=== PATIENT | male | born 1945 | race Caucasian/White ===

== ENCOUNTER 2017-09-13 10:55 | Inpatient (IN) ==
[2017-09-13 11:22] LABS: Basophils % 0.4 %; Eosinophils # 0.2 K/mcL (0.0-0.6); Eosinophils % 1.9 %; Hematocrit 34.6 % (37.5-50.1); Hemoglobin 11.6 g/dL (12.9-16.9); Immature Granulocytes % 0.6 % (0-4); Lymphocytes # 2.5 K/mcL (0.6-4.6); Lymphocytes % 32.3 %; Mean Corpuscular HGB Conc 33.5 g/dL (31.6-35.5); Mean Corpuscular Hemoglobin 30.6 pg (28.0-33.3); Mean Corpuscular Volume 91.3 fL (83.0-100.0); Mean Platelet Volume 10.5 fL (9.4-12.4); Monocytes # 0.9 K/mcL (0.0-1.3); Monocytes % 11.1 %; Neutrophils # 4.2 K/mcL (1.6-8.9); Platelet Count 188 K/mcL (140-400); Red Blood Count 3.79 M/mcL (4.19-5.50); Red Cell Distribution Width 12.9 % (11.5-14.5); Segmented Neutrophils % 53.7 %
[2017-09-13] MEDS ORDERED: Aspirin 81 MG TAB.CHEW PO ONE (11:29)
[2017-09-13 11:40] LABS: Calcium 10.1 mg/dL (8.6-10.3); Potassium 6.5 mEq/L (3.5-5.1)
[2017-09-13] MEDS ORDERED: Albuterol 2.5 MG/3 ML NEBULIZER IH ONE (11:43)
[2017-09-13] MEDS ORDERED: Insulin Human Regular 10 UNIT in 0.9 % Sodium Chloride 10 ML IV ONE ×2 (11:43→21:37)
[2017-09-13] MEDS ORDERED: *HR* Dextrose 50 % in Water (Syg) 50 ML SYRINGE IVP ONE ×2 (11:47→21:37)
[2017-09-13] MEDS ORDERED: Sodium Bicarbonate 50 MEQ/50 ML VIAL IVP ONE (11:48)
--- NOTE | 2017-09-13 11:49 | Emergency Department Note ---
Disposition Clinical Impression: Hyperkalemia CKD (chronic kidney disease) Qualifiers: Chronic kidney disease stage: unspecified stage Qualified Code(s): N18.9 - Chronic kidney disease, unspecified Chest pain Qualifiers: Chest pain type: unspecified Qualified Code(s): R07.9 - Chest pain, unspecified Disposition: Admitted As Inpatient Chest Pain HPI - General Chief Complaint: ED Chest Pain Stated Complaint: CP Time Seen by Provider: 09/13/17 11:06 Source: patient, family Mode of arrival: wheelchair Limitations: no limitations Vital Signs Reviewed: Yes Nursing Notes Reviewed: Yes - History of Present Illness HPI Narrative: 72-year-old male with a history of hypertension, diabetes and kidney disease presents for evaluation of chest pain. Patient noted nonexertional chest pain that occurred prior to arrival getting his labs checked. Patient felt chest tightness retrosternal which lasts approximately 15 minutes. Without radiation. Resolved prior to ED presentation. No nausea or vomiting but did no diaphoresis. No abdominal pain. No dyspnea. Severity scale (1-10): 5 - Related Data Home Medications Medication Instructions Recorded Confirmed Citalopram Hydrobromide 10 mg PO DAILY 03/25/16 09/13/17 [Citalopram HBr] Colesevelam HCl [Welchol] 1,250 mg PO DAILY 03/25/16 09/13/17 Insulin DETEMIR [Levemir Flextouch] 37 unit SQ DAILY 03/25/16 09/13/17 Metformin HCl [Glucophage] 1,000 mg PO BID 03/25/16 09/13/17 Metoprolol [Lopressor] 50 mg PO BID 03/25/16 09/13/17 Simvastatin [Zocor] 40 mg PO HS 03/25/16 09/13/17 amLODIPine [Norvasc] 5 mg PO DAILY 03/25/16 09/13/17 Iron 18 mg PO DAILY 09/13/17 09/13/17 Allergies Allergy/AdvReac Type Severity Reaction Status Date / Time Poison Gisselle Extract Allergy Rash Verified 03/25/16 10:09 All systems ED: reviewed and negative except as stated. Constitutional: Reports: as per HPI. Denies: fever Eyes: Reports: as per HPI ENT ED: Reports: as per HPI Cardiovascular: Reports: as per HPI, chest pain Respiratory: Reports: as per HPI. Denies: cough, dyspnea Gastrointestinal: Reports: as per HPI. Denies: abdominal pain, nausea, vomiting Genitourinary: Reports: as per HPI Musculoskeletal: Reports: as per HPI Integumentary: Reports: as per HPI Neurological: Reports: as per HPI Psychiatric: Reports: as per HPI Chest Pain PMH - Past Medical History Medical history: Reports: diabetes, hyperlipidemia, hypertension, renal disease Psychiatric history: Reports: anxiety - Social History Smoking Status: Never smoker Alcohol use: Reports: none Drug use: Reports: none Physical Exam - General Limitations: no limitations General appearance: alert, in no apparent distress - Head Head exam: atraumatic, normocephalic, normal inspection - Eye Eye exam: Present: normal appearance, PERRL, EOMI - ENT ENT exam: normal exam, mucous membranes moist - Neck Neck exam: Present: normal inspection - Chest Chest inspection: Present: normal inspection, symmetric chest wall rise. Absent : tenderness - Respiratory Respiratory exam: Present: normal lung sounds bilaterally. Absent: respiratory distress - Cardiovascular Cardiovascular exam: Present: normal rhythm, bradycardia - Abdominal Exam Abdominal exam: Present: soft, Non-Tender - Extremities Exam Extremities exam: Present: normal inspection. Absent: pedal edema - Expanded Lower Extremity Exam Neurovascular/Tendon exam: Present: normal capillary refill - Neurological Exam Neurological exam: Present: alert, oriented X3 - Skin Skin exam: Present: warm, dry, intact, normal color Course Course Narrative: She was seen and examined. Patient states his pain has resolved. She will get a cardiac evaluation with EKG, troponin and basic labs. Vital Signs Temperature 97.7 F 09/13/17 10:57 Pulse Rate 49 09/13/17 10:57 Respiratory Rate 20 09/13/17 10:57 Blood Pressure 151/77 09/13/17 10:57 O2 Sat by Pulse Oximetry 99 09/13/17 10:57 Temperature 97.7 F 09/13/17 10:57 Pulse Rate 49 09/13/17 10:57 Respiratory Rate 18 09/13/17 13:20 Blood Pressure 123/57 09/13/17 13:20 O2 Sat by Pulse Oximetry 97 09/13/17 11:43 Oxygen Delivery Oxygen Delivery Room Air Chest Pain - MDM Narrative Medical decision making narrative: 72-year-old male patients for evaluation of chest pain. During the patient's cardiac evaluation he was noted to be hyperkalemic with a potassium of 6.5. Patient had nonischemic EKG changes. Patient's EKG shows sinus bradycardia. Patient was given albuterol as well as bicarbonate and insulin. Patient's chest pain was resolved prior to ED presentation. Patient's EKG showed no signs or symptoms consistent with hyperkalemia. Patient was not given any calcium. Patient will be admitted to the hospital service for further evaluation monitoring. - Lab Data Lab results reviewed: Yes I reviewed the patient's lab results. Result diagrams: 09/13/17 11:00 09/13/17 11:48 Lab Results 09/13/17 09/13/17 09/13/17 Range/Units 10:57 11:00 11:00 WBC 7.9 (4.3-11.1) K/mcL RBC 3.79 L (4.19-5.50) M/mcL Hgb 11.6 L (12.9-16.9) g/dL Hct 34.6 L (37.5-50.1) % MCV 91.3 (83.0-100.0) fL MCH 30.6 (28.0-33.3) pg MCHC 33.5 (31.6-35.5) g/dL RDW 12.9 (11.5-14.5) % Plt Count 188 (140-400) K/mcL MPV 10.5 (9.4-12.4) fL Immature Gran % 0.6 (0-4) % Seg Neutrophils % 53.7 % Lymphocytes % 32.3 % Monocytes % 11.1 % Eosinophils % 1.9 % Basophils % 0.4 % Neutrophils # 4.2 (1.6-8.9) K/mcL Lymphocytes # 2.5 (0.6-4.6) K/mcL Monocytes # 0.9 (0.0-1.3) K/mcL Eosinophils # 0.2 (0.0-0.6) K/mcL Basophils # 0.0 (0.0-0.2) K/mcL Sodium 137 (136-145) mEq/L Potassium 6.5 H* (3.5-5.1) mEq/L Chloride 109 H (98-107) mEq/L Carbon Dioxide 22 L (23-29) mEq/L BUN 31 H (8-23) mg/dL Creatinine 2.16 H (0.70-1.30) mg/dL Est GFR ( Amer) 37 L (> 60) Est GFR (Non-Af Amer) 30 L (> 60) BUN/Creatinine Ratio 14 (6-26) Glucose 178 H (70-105) mg/dL POC Glucose 191 H (58-89) Calculated Osmolality 295 (280-300) Calcium 10.1 (8.6-10.3) mg/dL Troponin I (< 0.04) ng/mL 09/13/17 09/13/17 Range/Units 11:00 11:48 WBC (4.3-11.1) K/mcL RBC (4.19-5.50) M/mcL Hgb (12.9-16.9) g/dL Hct (37.5-50.1) % MCV (83.0-100.0) fL MCH (28.0-33.3) pg MCHC (31.6-35.5) g/dL RDW (11.5-14.5) % Plt Count (140-400) K/mcL MPV (9.4-12.4) fL Immature Gran % (0-4) % Seg Neutrophils % % Lymphocytes % % Monocytes % % Eosinophils % % Basophils % % Neutrophils # (1.6-8.9) K/mcL Lymphocytes # (0.6-4.6) K/mcL Monocytes # (0.0-1.3) K/mcL Eosinophils # (0.0-0.6) K/mcL Basophils # (0.0-0.2) K/mcL Sodium (136-145) mEq/L Potassium 6.5 H* (3.5-5.1) mEq/L Chloride (98-107) mEq/L Carbon Dioxide (23-29) mEq/L BUN (8-23) mg/dL Creatinine (0.70-1.30) mg/dL Est GFR ( Amer) (> 60) Est GFR (Non-Af Amer) (> 60) BUN/Creatinine Ratio (6-26) Glucose (70-105) mg/dL POC Glucose (58-89) Calculated Osmolality (280-300) Calcium (8.6-10.3) mg/dL Troponin I < 0.03 (< 0.04) ng/mL - Radiology Data Radiology results reviewed: Yes I reviewed the patient's radiology results. Chest X-Ray 09/13/17 11:29 IMPRESSION: 1. No active pulmonary disease. D/ / Carlos Daley MD / Carlos Daley MD Interpreting Provider: Carlos Daley MD - EKG Data EKG attestation: Yes I reviewed and interpreted this EKG. EKG shows normal: sinus rhythm Rate: bradycardia Rhythm: NSR [place]/QRS: normal Q waves: aVR T wave inversions noted in: aVR Interpretation: no acute changes S.Job - Colin Situation: Demographics Background: Presenting Complaint Assessment: Vital Signs, Course and respsone to treatment, Patient/Family Expectation Recommendation: Barrier(s) to disposition, Recommendation based on pending studies, treatments, or consults Colin Report Given to: Dr. Matthew Shaw Repor Time: 13:00 Attestation Statement - Attestation Attestation: I examined this patient and my medical decision-making was reviewed with the Resident Physician. I agree with the documented findings, disposition and treatment plan as described except to the extent set forth below. Hyper K+ with mild CLIFTON, confirmed w repeat K+, no hemolysis. Hyper K+ treated in ED, no EKG changes so Calcium not given.
[2017-09-13] MEDS ORDERED: Calcium Gluconate 1,000 MG in D5% in Water 100 ML IVPB ONE (14:09)
[2017-09-13] MEDS ORDERED: Naloxone 0.4 MG/ML INJ IVP PRN (14:12)
[2017-09-13] MEDS ORDERED: Dextrose Gel 15 GM/37.5 ML TUBE PO PRN ×2 (14:16)
[2017-09-13] MEDS ORDERED: D5% in Water 1,000 ML IVC PRN (14:16)
[2017-09-13] MEDS ORDERED: *HR* Dextrose 50 % in Water (Syg) 50 ML SYRINGE IVP PRN (14:16)
--- NOTE | 2017-09-13 14:20 | Internal Med History&Physical ---
<Chucho Loving - Last Filed: 09/13/17 14:26> Date of Encounter: 09/13/17 Time of Encounter: 14:18 Assessment and Plan (1) Acute kidney injury superimposed on chronic kidney disease Current visit: Yes Status: Acute Acute on chronic renal failure in the setting of CKD III. Etiology unclear at this time. He is sinus bradycardia but this does not appear to be pre-renal -Consult nephrology- -IVF 0.9% NS at 125ml/hr -check urine sodium and creatinine, -hold metformin as potential cause of CLIFTON -avoid nephrotoxins -Recheck serum Cr in the am (2) Hyperkalemia Current visit: Yes Status: Acute Hyperkalemia in the setting of CLIFTON. Dextrose, insulin and bicarb given in the ED. 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 He reports substernal CP that was non-exertional. He did however have diaphoresis, but no SOB. He reports that he experiences this type of chest pain frequently and that it occurs mostly with eating and subsided after approximately 20 minutes. Denies any h/o CAD or IL. Risk factors include HTN, DM, and HLD -trend troponins -PALOMA to assess for wall motion abnormalities -ASA 81 mg now - cardiac enzymes x 2 q 8 hr - EKG no changes or ischemia noted - Hold metoprolol for now d/t bradycardia - O2 by NC to keep SpO2 greater than 92% - CBCD, BMP in AM - Fasting lipids - Heparin 5000 U SQ BID -Hold off on cardiac consult for now Qualifiers: Chest pain type: unspecified Qualified Code(s): R07.9 - Chest pain, unspecified (4) Diabetes mellitus type 2 in nonobese Current visit: Yes Status: Chronic LSSIC, AAC/HS check with renal/diabetic diet (5) Hypertension Current visit: Yes Status: Chronic stable, hold BB, resume amlodipine Qualifiers: Hypertension type: essential hypertension Qualified Code(s): I10 - Essential (primary) hypertension (6) CKD (chronic kidney disease) Current visit: Yes Status: Acute see plan above Qualifiers: Chronic kidney disease stage: stage 3 (moderate) Qualified Code(s): N18.3 - Chronic kidney disease, stage 3 (moderate) (7) DVT prophylaxis Current visit: Yes Status: Acute Hepain 5000 units SC BID Internal Medicine - H&P: HPI Chief complaint: HYPERKALEMIA, WORSENING RENAL FUNCTION Admitted From: Home Plans for Post Hospital Care: Home History of present illness: Mr. Lee is a 72 year old male with past medical history of CKD stage III, HTN, DM, and HLD. Patient presents today due to hyperkalemia and nonexertional retrosternal chest pain. 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 The patient said during the event he was diaphoretic but denied any shortness of breath. He reports chest pain lasted approximately 15 minutes No prior history of IL. He denies any nausea, vomiting, diarrhea, abdominal pain, fevers , chills, unilateral extremity swelling or pain. EKG in the emergency department reveals sinus bradycardia without any ischemic changes. His lab work that up revealed hyperkalemia with potassium of 6.5 as well as worsening renal function with BUN 31 and creatinine of 2.16. Past Med Surg Social Fam HX - Past Medical History Medical history: diabetes, hyperlipidemia, hypertension, renal disease Psychiatric history: anxiety - Social History Smoking Status: Never smoker Smokeless Tobacco Status: No Alcohol use: none Drug use: none - Family History Father Living Status: Hx Family Cardiac Disorders: Yes Brother Living Status: Still Living Hx Family Cancer: Yes (Metastatic) Hx Family Endocrine Disorder: Yes (DM) Internal Medicine - H&P: Meds Citalopram Hydrobromide [Citalopram HBr] 10 mg PO DAILY 03/25/16 [History] Colesevelam HCl [Welchol] 1,250 mg PO DAILY 03/25/16 [History] Insulin DETEMIR [Levemir Flextouch] 37 unit SQ DAILY 03/25/16 [History] Metformin HCl [Glucophage] 1,000 mg PO BID 03/25/16 [History] Metoprolol [Lopressor] 50 mg PO BID 03/25/16 [History] Simvastatin [Zocor] 40 mg PO HS 03/25/16 [History] amLODIPine [Norvasc] 5 mg PO DAILY 03/25/16 [History] Iron 18 mg PO DAILY 09/13/17 [History] 3 Allergy/AdvReac Type Severity Reaction Status Date / Time Poison Gisselle Extract Allergy Rash Verified 03/25/16 10:09 All Systems PM: A 10-system review of systems was performed and is negative for pertinent findings except as documented above in the HPI. - Constitutional Constitutional: no chills, no fever(s), no night sweats - Cardiovascular Cardiovascular ROS IM: as per HPI - Respiratory Respiratory: no cough, no dyspnea, no wheezing, no excessive phlegm production - Gastrointestinal Gastrointestinal: as per HPI, no abdominal pain, no diarrhea, no hematemesis, no hematochezia, no melena, no nausea, no vomiting - Genitourinary Genitourinary ROS male: no dysuria, no flank pain - Musculoskeletal Musculoskeletal ROS IM: no numbness, no tingling - Integumentary Integumentary IM: no rash, no unusual bruising - Neurological Neurological ROS: no confusion, no convulsions, no focal weakness, no numbness, no tingling, no tremor(s) - Hematologic/Lymphatic Hematologic/Lymphatic: no easy bruising - Constitutional Vitals: Temp Pulse Resp BP Pulse Ox 97.7 F 49 18 123/57 97 09/13/17 10:57 09/13/17 10:57 09/13/17 13:20 09/13/17 13:20 09/13/17 11:43 General appearance: Present: cooperative, A&O X 3, no acute distress, answers questions appropriately - Head Head exam: Present: atraumatic, normocephalic - Eye Eye exam: Present: PERRL, conjuntiva pink, sclera anicteric Pupils: Present: PERRL - ENT ENT exam: Present: mucous membranes dry - Neck Neck exam general surgery: Present: supple, trachea midline. Absent: lymphadenopathy - Respiratory Respiratory exam: Present: CTAB. Absent: accessory muscle use, rales, rhonchi, wheezes - Cardiovascular Cardiovascular exam: Present: RRR, +S1, +S2. Absent: diastolic murmur, gallop, rubs, systolic murmur - GI/Abdominal GI/Abdominal exam: Present: normal bowel sounds, soft, no peritoneal signs. Absent: distended, tenderness - Extremities Exam Extremities exam: Present: warm, radial pulses palpable and symmetrical. Absent : calf tenderness, cyanotic, pedal edema - Neurological Exam Neurological exam: Present: alert, oriented X3. Absent: facial droop, speech deficit - Skin Skin exam: Present: dry, intact Internal Med - H&P Results - Labs CBC & Chem 7: 09/13/17 11:00 09/13/17 11:48 - EKG Data -: EKG Interpreted by Myself EKG shows normal: sinus rhythm Rate: bradycardia - EKG Data Prior EKG available for review: yes When compared to previous EKG: there are significant changes Interpretation IM: normal EKG EKG comments: 09/13/17 14:21 NEW BRADYCARDIA, NO ISCHEMIC CHANGES NOTED - Impressions Impressions Chest X-Ray 09/13/17 11:29 IMPRESSION: 1. No active pulmonary disease. D/ / Carlos Daley MD / Carlos Daley MD Interpreting Provider: Carlos Daley MD <Joel Irwin H - Last Filed: 09/13/17 15:09> Date of Encounter: 09/13/17 Internal Medicine - H&P: HPI History of present illness: Mr. Lee is a 72 year old male All Systems PM: A 10-system review of systems was performed and is negative for pertinent findings except as documented above in the HPI. - Constitutional Vitals: Temp Pulse Resp BP Pulse Ox 98.2 F 63 15 124/53 95 09/13/17 14:42 09/13/17 14:42 09/13/17 14:42 09/13/17 14:42 09/13/17 14:42 Internal Med - H&P Results - Labs CBC & Chem 7: 09/13/17 11:00 09/13/17 11:48 - Attending Attestation 1. Acute on chronic renal failure in the setting of chronic kidney disease stage III, unclear etiology Start IV fluids, check urine sodium and creatinine,: Nephrology consult, stop metformin 2. Bradycardia, asymptomatic likely secondary to beta cade Hold metoprolol, continue telemetry 3. Chest pain, check an echocardiogram to assess wall motion abnormalities Monitor troponins, start aspirin Lipid panel in the morning 4. Hyperkalemia, dextrose 50, insulin and bicarbonate were given in the emergency room We will give 1 amp of calcium gluconate and Kayexalate, monitor sodium 5. Diabetes type 2 insulin-dependent, continue insulin sliding scale 6. Hypertension, continue amlodipine Omeprazole for GI prophylaxis and subcutaneous heparin for deep prophylaxis. The patient will be admitted as inpatient, Lew to stay more than 2 midnights. DNR CC arrest DNI, time spent on this admission 40 minutes I have personally performed a face to face evaluation on this patient. I have reviewed and agree with the care plan. History and Exam by me shows:
--- NOTE | 2017-09-13 14:23 | Event Note ---
Date of Encounter: 09/13/17 Time of Encounter: 14:20 1. Acute chronic renal failure in the setting of chronic kidney disease stage III, unclear etiology Start IV fluids, check urine sodium and creatinine,: Nephrology consult, stop metformin 2. Bradycardia, asymptomatic likely secondary to beta cade Hold metoprolol, continue telemetry 3. Chest pain, check an echocardiogram to assess wall motion abnormalities Monitor troponins, start aspirin Lipid panel in the morning 4. Hyperkalemia, dextrose 50, insulin and bicarbonate were given in the emergency room We will give 1 amp of calcium gluconate and Kayexalate, monitor sodium 5. Diabetes type 2 insulin-dependent, continue insulin sliding scale 6. Hypertension, continue amlodipine Omeprazole for GI prophylaxis and subcutaneous heparin for deep prophylaxis. The patient will be admitted as inpatient, Lew to stay more than 2 midnights. DNR CC arrest DNI, time spent on this admission 40 minutes H&P will be completed by CAREY Loving
[2017-09-13] MEDS: *HR* Heparin 5,000 UNIT/ML VIAL SQ SCH (16:16)
[2017-09-13] MEDS: 0.9 % Sodium Chloride 1,000 ML IVC SCH (16:16)
[2017-09-13] MEDS: Insulin LISPRO 300 UNITS/3 ML VIAL SQ SCH ×2 (16:45→23:12)
[2017-09-13] MEDS ORDERED: Nitroglycerin 0.4 MG TAB.SUBL SL PRN (18:35)
[2017-09-13] MEDS ORDERED: *HR* Morphine 2 MG/ML SYRINGE IVP PRN (18:41)
--- NOTE | 2017-09-13 19:05 | Nephrology Consult Note ---
Date of Encounter: 09/13/17 Time of Encounter: 18:00 Assessment and Plan (1) Acute kidney injury superimposed on chronic kidney disease Current Visit: Yes Status: Acute Non-oliguric CLIFTON on CKD stage IIIb. Suspect prerenal CLIFTON. Continue volume expansion. No urgent need for HD but if his hyperkalemia becomes medical refractory, then dialysis may be needed. See below. Continue to follow a renal protective / supportive strategy. Will follow with you. Thank you for consulting the [facility] service. (2) CKD (chronic kidney disease) Current Visit: Yes Status: Chronic CKD stage IIIb and nearing stage IV. Most likely secondary to DM. He is followed by my colleague Dr. Crisostomo. Hold metformin for now, and depending upon how good his renal function improves during this hospitalization, he may not be able to resume metformin at discharge. The guidance from the FDA indicates that metformin should only be cautiously given with GFRs of 30-45, but if <30, then metformin is contraindicated. Qualifiers: Chronic kidney disease stage: stage 3 (moderate) Qualified Code(s): N18.3 - Chronic kidney disease, stage 3 (moderate) (3) Hyperkalemia Current Visit: Yes Status: Acute Agree with kayexalate and the other medical temporizing measures. Continue to volume expand with NS IVF as this will also help lower serum K+ His bradycardia is already starting to improve on my exam this evening. I suspect the CLIFTON and reduced renal clearance contributed to the hyperkalemia. He should have a renal diet (i.e., low potassium diet). I counseled him for >50% of the approx 30 min encounter. (4) Hypertension Current Visit: Yes Status: Chronic He's not taking an VERO or ARB d/t his advanced CKD. Would cont to avoid any VERO or ARB for the time being. Qualifiers: Hypertension type: essential hypertension Qualified Code(s): I10 - Essential (primary) hypertension (5) Pain of left calf Current Visit: Yes Status: Acute Subacute, with asymmetric Left Calf swelling and pain for a few weeks. I recommend DVT rule out and I've ordered a LE doppler. History of Present Illness - Reason for Consult Consult date: 09/13/17 Acute Kidney Injury, Chronic Kidney Disease, hyperkalemia Requesting physician: Joel Irwin - Chief Complaint Hyperkalemia, CLIFTON on CKD - History of Present Illness Jermaine Lee is a very pleasant 72 y/o WM with a pmh of CKD, T2DM, HTN and et al who presented with substernal chest pains, bradycardia and hyperkalemia. He has already received kayexalate, and upon my exam and interview this evening with him, he was already having bowel movements and less severe bradycardia. He reported development of substernal CP that both worsens with palpation and occ at rest. Does not worsen with exertion. He described it as pulling like pain. He denied recent hvy lifting or falls or other injuries. He also denied N/V/D or F/C or URI / cough symptoms. His primary archeologist is Dr. Crisostomo. The pt denied use of OTC NSAIDs. He also said that his left lower extremity started swelling a few weeks ago without recent injury. The other leg has not been swelling. He said that he's not had any imaging to rule out a DVT. There is a burning pain associated with the left calf he said as well. Past Med Surg Social Fam HX - Past Medical History Medical history: diabetes, hyperlipidemia, hypertension, renal disease Psychiatric history: anxiety - Past Surgical History Surgical History: cholecystectomy - Social History Smoking Status: Never smoker Smokeless Tobacco Status: No Alcohol use: none Drug use: none - Family History Father Name: Too Lee Living Status: Age at : 77 Hx Family Cardiac Disorders: Yes Brother Living Status: Still Living Hx Family Cancer: Yes (Metastatic) Hx Family Endocrine Disorder: Yes (DM) Medications and Allergies Citalopram Hydrobromide [Citalopram HBr] 10 mg PO DAILY 03/25/16 [History] Colesevelam HCl [Welchol] 1,250 mg PO DAILY 03/25/16 [History] Insulin DETEMIR [Levemir Flextouch] 37 unit SQ DAILY 03/25/16 [History] Metformin HCl [Glucophage] 1,000 mg PO BID 03/25/16 [History] Metoprolol [Lopressor] 50 mg PO BID 03/25/16 [History] Simvastatin [Zocor] 40 mg PO HS 03/25/16 [History] amLODIPine [Norvasc] 5 mg PO DAILY 03/25/16 [History] Iron 18 mg PO DAILY 01/24/18 [History] 3 Allergy/AdvReac Type Severity Reaction Status Date / Time Poison Gisselle Extract Allergy Rash Verified 03/25/16 10:09 Review of Systems All Systems: reviewed and no additional remarkable complaints except as stated Exam - Vital Signs Vital signs: Initial Vital Signs Temp Pulse Resp BP Pulse Ox 97.7 F 49 20 151/77 99 09/13/17 10:57 09/13/17 10:57 09/13/17 10:57 09/13/17 10:57 09/13/17 10:57 Vital Signs - Last 8 Hours Temp Pulse Resp BP Pulse Ox 09/13/17 18:24 97.5 F L 65 16 162/73 96 09/13/17 14:42 98.2 F 63 15 124/53 95 Intake and Output 09/13/17 09/13/17 09/13/17 07:59 15:59 23:59 Other: Weight 61.348 kg Blood Glucose* 146 132 Patient Weight 09/13/17 23:59 Weight 61.348 kg - General Appearance General appearance: well-developed, well-nourished, appears started age EENT: ATNC, PERRL, mucous membranes moist Additional Comments: Poor dentition. Neck: supple Respiratory: clear Cardiology: no edema (in the RLE, but the LLE has about 1+ pretibial pitting edema. ), regular rate, regular rhythm, normal S1, normal S2 Additional Comments: Chest pain worsened upon light sternal palpation Gastrointestinal: normoactive bowel sounds, no tenderness, no guarding Integumentary: no rash, warm and dry Neurologic: no focal deficit, no asterixis, alert and oriented x3 Musculoskeletal: no deformities, no erythema, no cyanosis Psychiatric: mood/affect appropriate, cooperative Results - Lab Results 09/13/17 11:00 09/13/17 11:48 Most recent lab results Calcium 10.1 mg/dL (8.6-10.3) 09/13/17 11:00 I reviewed the labs, med lists, progress notes, vitals, and imaging. Consult Discharge Plan - Plan Referrals: Erasto Varner MD [Primary Care Provider] -
[2017-09-13 19:13] LABS: Albumin 4.1 g/dL (3.5-5.7); Albumin/Globulin Ratio 1.3 (1.1-2.2); Bilirubin,Direct 0.1 mg/dL (0.0-0.2); Bilirubin,Indirect 0.3 mg/dL (0.0-1.2); Bilirubin,Total 0.4 mg/dL (0.3-1.0); Globulin 3.1 g/dL (2.4-3.5); Total Protein 7.2 g/dL (6.4-8.9)
[2017-09-13 22:33] LABS: Calcium 9.7 mg/dL (8.6-10.3); Potassium 5.1 mEq/L (3.5-5.1)
[2017-09-13 22:40] LABS: Sodium, Urine 48.5 mEq/L
[2017-09-14] MEDS: 0.9 % Sodium Chloride 1,000 ML IVC SCH (03:00)
[2017-09-14 05:19] LABS: Basophils % 0.2 %; Eosinophils # 0.1 K/mcL (0.0-0.6); Eosinophils % 2.2 %; Immature Granulocytes % 0.4 % (0-4); Lymphocytes # 1.7 K/mcL (0.6-4.6); Lymphocytes % 34.3 %; Mean Corpuscular HGB Conc 33.3 g/dL (31.6-35.5); Mean Corpuscular Hemoglobin 30.4 pg (28.0-33.3); Mean Corpuscular Volume 91.2 fL (83.0-100.0); Mean Platelet Volume 10.7 fL (9.4-12.4); Monocytes # 0.7 K/mcL (0.0-1.3); Monocytes % 13.7 %; Neutrophils # 2.5 K/mcL (1.6-8.9); Platelet Count 147 K/mcL (140-400); Red Blood Count 3.29 M/mcL (4.19-5.50); Red Cell Distribution Width 13.1 % (11.5-14.5); Segmented Neutrophils % 49.2 %
[2017-09-14] MEDS: *HR* Heparin 5,000 UNIT/ML VIAL SQ SCH ×2 (05:46→17:32)
[2017-09-14 05:59] LABS: Albumin 3.8 g/dL (3.5-5.7); Albumin/Globulin Ratio 1.5 (1.1-2.2); Bilirubin,Total 0.5 mg/dL (0.3-1.0); Calcium 8.7 mg/dL (8.6-10.3); Chol/HDL Ratio 4.1 (0-4.9); Globulin 2.5 g/dL (2.4-3.5); Potassium 4.7 mEq/L (3.5-5.1); Total Protein 6.3 g/dL (6.4-8.9)
[2017-09-14] MEDS: Insulin LISPRO 300 UNITS/3 ML VIAL SQ SCH ×4 (08:24→22:31)
[2017-09-14] MEDS ORDERED: amLODIPine 5 MG TABLET PO SCH (09:00)
--- NOTE | 2017-09-14 09:00 | Electrocardiograph Report ---
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
--- NOTE | 2017-09-14 09:11 | Nephrology Progress Note ---
Date of Encounter: 09/14/17 Time of Encounter: 09:09 - Assessment and Plan (1) Acute kidney injury superimposed on chronic kidney disease Current Visit: Yes Status: Acute Non-oliguric CLIFTON on CKD stage IIIb. FeNa 0.04% indicating pre-renal cause, likely hypovolemia Continue volume expansion. No urgent need for HD but if his hyperkalemia becomes medical refractory, then dialysis may be needed. Continue to follow a renal protective / supportive strategy. Avoid nephrotoxins/ IV contrast Continue to monitor (2) CKD (chronic kidney disease) Current Visit: Yes Status: Chronic CKD stage IIIb and nearing stage IV. Most likely secondary to DM. Jack Winder is Dr. Crisostomo. Hold metformin for now, and depending upon how good his renal function improves during this hospitalization, he may not be able to resume Metformin at discharge. The guidance from the FDA indicates that metformin should only be cautiously given with GFRs of 30-45, but if <30, then metformin is contraindicated. Qualifiers: Chronic kidney disease stage: stage 3 (moderate) Qualified Code(s): N18.3 - Chronic kidney disease, stage 3 (moderate) (3) Hyperkalemia Current Visit: Yes Status: Acute Resolved Stop Kayexalate. Continue to volume expand with NS IVF I suspect the CLIFTON and reduced renal clearance contributed to the hyperkalemia. He should have a renal diet (i.e., low potassium diet). (4) Hypertension Current Visit: Yes Status: Chronic Patient is not taking an VERO or ARB d/t his advanced CKD. Would continue to avoid any VERO or ARB for the time being. Increase dose home Amlodipine to 10mg PO daily Switch from Zocor to Lipitor due to drug interaction with Amlodipine Qualifiers: Hypertension type: essential hypertension Qualified Code(s): I10 - Essential (primary) hypertension (5) HLD (hyperlipidemia) Current Visit: No Status: Chronic Switch from Zocor to Lipitor due to drug interaction with Amlodipine Qualifiers: Hyperlipidemia type: unspecified Qualified Code(s): E78.5 - Hyperlipidemia , unspecified (6) Pain of left calf Current Visit: Yes Status: Acute Subacute, with asymmetric left calf swelling and pain for a few weeks LLE doppler preliminary report is negative for DVT Subjective Principal diagnosis: CLIFTON on CKD Interval history: Patient seen and examined. He reports intermittent sub-sternal CP this AM reproducible on chest palpation. He denies any other complaints at this time. Objective - Vital Signs Vital signs: Vital Signs Temp Pulse Resp BP Pulse Ox 09/14/17 06:59 98.2 F 70 18 150/75 95 09/14/17 04:05 97.9 F 63 16 151/72 97 09/13/17 23:06 98.0 F 63 16 132/67 96 09/13/17 18:24 97.5 F L 65 16 162/73 96 09/13/17 14:42 98.2 F 63 15 124/53 95 Intake and Output 09/13/17 09/14/17 09/14/17 23:59 07:59 15:59 Intake Total 1000 / 1000 Output Total 700 / 700 Balance 300 / 300 Intake: IV Fluids 1000 / 1000 0.9 % Sodium Chloride 1,000 ML 1000 / 1000 @ 125 mls/hr IVC .Q8H [facility] Rx#: [id number] Output: Urine 700 / 700 Other: Blood Glucose* 179 148 - General Appearance General appearance: Present: well-developed, well-nourished, appears started age EENT: Present: ATNC, PERRL, mucous membranes moist Neck: Present: no JVD, supple Respiratory: Present: clear Cardiology: Present: no murmurs, regular rate, regular rhythm, normal S1, normal S2 Additional Comments: no edema in the RLE, but the LLE has about 1+ pretibial pitting edema, sub- sternal chest pain reproducible with chest wall palpation Gastrointestinal: Present: normoactive bowel sounds, no tenderness, no guarding Integumentary: Present: no rash, warm and dry Neurologic: Present: no focal deficit, no asterixis, alert and oriented x3 Musculoskeletal: Present: no deformities, no erythema, no cyanosis Psychiatric: Present: mood/affect appropriate, cooperative - Lab 09/14/17 04:23 09/14/17 04:23 Most recent lab results Calcium 8.7 mg/dL (8.6-10.3) 09/14/17 04:23 Urine Creatinine 161 mg/dL 09/13/17 21:00 Urine Sodium 48.5 mEq/L 09/13/17 21:00 Consult Discharge Plan - Plan Referrals: Erasto Varner MD [Primary Care Provider] - 09/25/17 8:00 am
[2017-09-14] MEDS: Insulin DETEMIR 100 UNIT/ML X5UNITS SQ SCH (09:40)
[2017-09-14] MEDS ORDERED: amLODIPine 5 MG TABLET PO ONE (11:57)
--- NOTE | 2017-09-14 16:26 | Electrocardiograph Report ---
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
--- NOTE | 2017-09-14 16:42 | Internal Med Progress Note ---
Date of Encounter: 09/14/17 Time of Encounter: 10:45 - Assessment and plan (1) Chest pain Current Visit: Yes Status: Acute Assessment and plan: presented with chest pain described as tearing sensation. CP relieved and EGD. No known CAD, no previous ischemic eval. TTE with reserved EF, no all motion abnormality. Risk factors include hypertension, diabetes and family history. NPO at midnight. Stress test in a.m. Consult cardiology if needed. Continue ASA. Qualifiers: Chest pain type: unspecified Qualified Code(s): R07.9 - Chest pain, unspecified (2) Acute kidney injury superimposed on chronic kidney disease Current Visit: Yes Status: Acute Assessment and plan: Acute on chronic renal failure in the setting of CKD III. Evaulated by Nephrology who noted non-oliguric CLIFTON on CKD stage IIIb, likely prerenal CLIFTON. No urgent need for HD but if his hyperkalemia becomes medical refractory, then dialysis may be needed. Cont IV fluids (3) Hyperkalemia Current Visit: Yes Status: Acute Assessment and plan: K 6.5 on arrival. Treated with Kayexalate, IV calcium gluconate. Repeat K 4.7. Monitor daily BMP. Nephrology following (4) Hypertension Current Visit: Yes Status: Chronic Assessment and plan: per hx. BP variable acceptable. Continue BP medication. Monitor BP and titrate PRN Qualifiers: Hypertension type: essential hypertension Qualified Code(s): I10 - Essential (primary) hypertension (5) T2DM (type 2 diabetes mellitus) Current Visit: No Status: Chronic Assessment and plan: per hx. internal unknown. Holding home oral hypoglycemics. SSI. Monitor blood sugar and titrate PRN. Hgb A1c pending Qualifiers: Diabetes mellitus complication status: without complication Diabetes mellitus care home insulin use: unspecified long term acute care registered nurse insulin use status Qualified Code(s): E11.9 - Type 2 diabetes mellitus without complications (6) DVT prophylaxis Current Visit: Yes Status: Acute Assessment and plan: heparin - Subjective Interval history: Seen and examined at bedside, patient is new to me. Information taken from chart review and patient report. Patient says he feels better on my exam. No further chest pain. States he had episode of midsternal chest pain. Described as someone during his chest open. Did not radiate. Nothing made better or worse. No previous ischemic eval. No shortness of breath - Constitutional Vitals: Temp Pulse Resp BP Pulse Ox 98.0 F 77 18 148/75 97 09/14/17 15:56 09/14/17 15:56 09/14/17 15:56 09/14/17 15:56 09/14/17 15:56 General appearance: Present: cooperative, A&O X 3, no acute distress, answers questions appropriately - Head Head exam: Present: atraumatic, normocephalic - Eye Eye exam: Present: PERRL, conjuntiva pink, sclera anicteric Pupils: Present: PERRL - Neck Neck exam general surgery: Present: supple, trachea midline. Absent: lymphadenopathy - Respiratory Respiratory exam: Present: CTAB. Absent: accessory muscle use, rales, rhonchi, wheezes - Cardiovascular Cardiovascular exam: Present: RRR, +S1, +S2. Absent: diastolic murmur, gallop, rubs, systolic murmur - GI/Abdominal GI/Abdominal exam: Present: normal bowel sounds, soft, no peritoneal signs. Absent: distended, tenderness - Extremities Exam Extremities exam: Present: warm, radial pulses palpable and symmetrical. Absent : calf tenderness, cyanotic, pedal edema - Neurological Exam Neurological exam: Present: CN II-XII intact, oriented X3, no focal deficits. Absent: pronater drift, facial droop, speech deficit - Skin Skin exam: Present: dry, intact Internal Medicine: Result - Labs CBC & Chem 7: 09/14/17 04:23 09/14/17 04:23 Labs: Short CBC 09/14/17 Range/Units 04:23 WBC 5.0 (4.3-11.1) K/mcL Hgb 10.0 L D (12.9-16.9) g/dL Hct 30.0 L (37.5-50.1) % Plt Count 147 (140-400) K/mcL Neutrophils # 2.5 (1.6-8.9) K/mcL BMP 09/13/17 09/14/17 17:24 04:23 Sodium 140 139 Potassium 5.1 4.7 Chloride 109 H 109 H Carbon Dioxide 24 25 BUN 31 H 26 H Creatinine 2.09 H 1.79 H Glucose 158 H 136 H Calcium 9.7 8.7 Cardiac Enzymes 09/13/17 09/13/17 09/14/17 Range/Units 17:24 18:49 00:36 Troponin I < 0.03 < 0.03 < 0.03 (< 0.04) ng/mL Liver Function 09/13/17 09/14/17 Range/Units 18:49 04:23 Total Bilirubin 0.4 0.5 (0.3-1.0) mg/dL Direct Bilirubin 0.1 (0.0-0.2) mg/dL AST 26 24 (13-39) Units/L ALT 18 16 (7-52) Units/L Alkaline Phosphatase 60 55 (34-104) Units/L Albumin 4.1 3.8 (3.5-5.7) g/dL - Impressions Impressions Abdomen/Pelvis CT 09/13/17 21:45 IMPRESSION: Diverticulosis without scan evidence for diverticulitis or other acute process. Small hiatal hernia. D/ / Shade Nichole MD / Shade Nichole MD Interpreting Provider: Shade Nichole MD Consult Discharge Plan - Plan Referrals: Erasto Varner MD [Primary Care Provider] - 09/25/17 8:00 am
[2017-09-14] MEDS: Aspirin 81 MG TAB.CHEW PO SCH (17:32)
[2017-09-15 05:18] LABS: Calcium 9.1 mg/dL (8.6-10.3); Potassium 4.5 mEq/L (3.5-5.1)
[2017-09-15] MEDS: *HR* Heparin 5,000 UNIT/ML VIAL SQ SCH ×2 (05:50→17:42)
[2017-09-15] MEDS ORDERED: Regadenoson 0.4 MG/5 ML SYRINGE IVP ONE (06:20)
--- NOTE | 2017-09-15 07:00 | Nephrology Progress Note ---
<Tl Paez - Last Filed: 09/15/17 12:01> Date of Encounter: 09/15/17 Time of Encounter: 07:00 - Assessment and Plan (1) Acute kidney injury superimposed on chronic kidney disease Status: Acute Non-oliguric CLIFTON on CKD stage IIIb. Slowly improving renal function FeNa 0.04% indicating pre-renal cause, likely hypovolemia Continue to follow a renal protective / supportive strategy. Avoid nephrotoxins/ IV contrast Patient had nuclear stress test today, will continue IVF Continue to monitor (2) CKD (chronic kidney disease) Status: Chronic CKD stage IIIb and nearing stage IV. Most likely secondary to DM. Manager Rfid is Dr. Crisostomo. Hold metformin for now, and depending upon how good his renal function improves during this hospitalization, he may not be able to resume Metformin at discharge. The guidance from the FDA indicates that metformin should only be cautiously given with GFRs of 30-45, but if <30, then metformin is contraindicated. Qualifiers: Chronic kidney disease stage: stage 3 (moderate) Qualified Code(s): N18.3 - Chronic kidney disease, stage 3 (moderate) (3) Hyperkalemia Status: Acute Resolved. Discontinued Kayexalate. Continue to volume expand with NS IVF I suspect the CLIFTON and reduced renal clearance contributed to the hyperkalemia. No need for LABOR RELATIONS MANAGER now that the hyperkalemia has corrected He should have a renal diet (i.e., low potassium diet). (4) Hypertension Status: Chronic Patient is not taking an VERO or ARB d/t his advanced CKD. Would continue to avoid any VERO or ARB for the time being. Increased dose home Amlodipine to 10mg PO daily Switched from Zocor to Lipitor due to drug interaction with Amlodipine Qualifiers: Hypertension type: essential hypertension Qualified Code(s): I10 - Essential (primary) hypertension (5) HLD (hyperlipidemia) Status: Chronic Switched from Zocor to Lipitor due to drug interaction with Amlodipine Outpatient monitoring Qualifiers: Hyperlipidemia type: unspecified Qualified Code(s): E78.5 - Hyperlipidemia , unspecified (6) Pain of left calf Status: Acute Subacute, with asymmetric left calf swelling and pain for a few weeks LLE doppler is negative for DVT Subjective Principal diagnosis: CLIFTON on CKD Interval history: Patient seen and examined this AM after returning from his nuclear stress test. He denies any complaints at this time and reports good urine output overnight. Objective - Vital Signs Vital signs: Vital Signs Temp Pulse Resp BP Pulse Ox 09/15/17 03:39 97.4 F L 65 16 143/72 96 09/14/17 23:25 97.4 F L 68 20 141/84 97 09/14/17 20:51 97 09/14/17 19:36 97.7 F 73 16 149/81 97 09/14/17 15:56 98.0 F 77 18 148/75 97 09/14/17 11:16 97.4 F L 73 18 148/74 97 Intake and Output 09/14/17 09/14/17 09/15/17 15:59 23:59 07:59 Intake Total 1000 / 1000 0 / 0 Output Total 800 / 800 400 / 400 900 / 900 Balance 200 / 200 -400 / -400 -900 / -900 Intake: IV Fluids 1000 / 1000 0.9 % Sodium Chloride 1,000 ML 1000 / 1000 @ 125 mls/hr IVC .Q8H [facility] Rx#: [id number] Oral 0 / 0 Output: Urine 800 / 800 400 / 400 900 / 900 Other: Weight 63.2 kg Blood Glucose* 175 119 Patient Weight 09/15/17 23:59 Weight 63.2 kg - General Appearance General appearance: Present: well-developed, well-nourished, appears started age EENT: Present: ATNC, PERRL, mucous membranes moist Neck: Present: no JVD, supple Respiratory: Present: clear Cardiology: Present: no murmurs, regular rate, regular rhythm, normal S1, normal S2 Additional Comments: no edema in the RLE, but the LLE has about 1+ pretibial pitting edema Gastrointestinal: Present: normoactive bowel sounds, no tenderness, no guarding , no organomegaly Integumentary: Present: no rash, warm and dry Neurologic: Present: no focal deficit, alert and oriented x3 Musculoskeletal: Present: no deformities, no erythema, no cyanosis Psychiatric: Present: mood/affect appropriate, cooperative - Lab 09/14/17 04:23 09/15/17 04:25 Most recent lab results Calcium 9.1 mg/dL (8.6-10.3) 09/15/17 04:25 Urine Creatinine 161 mg/dL 09/13/17 21:00 Urine Sodium 48.5 mEq/L 09/13/17 21:00 Consult Discharge Plan - Plan Instructions: Chest Pain (DC), Chronic Kidney Disease (DC), Hyperkalemia (DC) Referrals: Marcel Crisostomo MD [Partnered Physician] - (Please call for follow-up appointment within the next 4 weeks. He should have a repeat basic metabolic panel drawn) Syl Echeverria MD [Partnered Physician] - (Please call to schedule appointment within 1-2 weeks to establish care with ladder operator.) Erasto Varner MD [Primary Care Provider] - 09/25/17 8:00 am Prescriptions: Aspirin 81 mg PO DAILY #30 [email or web address] <Tripp Roberts - Last Filed: 10/13/17 09:30> Date of Encounter: 09/15/17 - Assessment and Plan (1) Acute kidney injury superimposed on chronic kidney disease Status: Chronic (2) CKD (chronic kidney disease) stage 3, GFR 30-59 ml/min Status: Acute Objective - Lab 09/16/17 08:39 09/16/17 08:39 Most recent lab results Calcium 8.8 mg/dL (8.6-10.3) 09/16/17 08:39 Urine Creatinine 161 mg/dL 09/13/17 21:00 Urine Sodium 48.5 mEq/L 09/13/17 21:00 - Attending Attestation I examined this patient and my medical decision-making was reviewed with the Resident Physician. I agree with the documented findings, disposition and treatment plan as described except to the extent set forth below. Pt seen and examined, Interim events noted. SCr improving at 1.75, GFR 39. Continue IVF. UOP good. No acute indication for LABOR RELATIONS MANAGER at this time
[2017-09-15] MEDS: Insulin LISPRO 300 UNITS/3 ML VIAL SQ SCH ×4 (08:04→21:37)
[2017-09-15] MEDS: Aspirin 81 MG TAB.CHEW PO SCH (09:21)
[2017-09-15] MEDS: amLODIPine 5 MG TABLET PO SCH (09:21)
[2017-09-15] MEDS: Insulin DETEMIR 100 UNIT/ML X5UNITS SQ SCH (09:21)
[2017-09-15] MEDS: 0.9 % Sodium Chloride 1,000 ML IVC SCH ×2 (12:19→23:36)
--- NOTE | 2017-09-15 20:10 | Internal Med Progress Note ---
Date of Encounter: 09/15/17 Time of Encounter: 14:30 - Assessment and plan (1) Chest pain Current Visit: Yes Status: Acute Assessment and plan: presented with chest pain described as tearing sensation. CP relieved and EGD. No known CAD, no previous ischemic eval. TTE with reserved EF, no all motion abnormality. Risk factors include hypertension, diabetes and family history. Stress test negative for acute infarct or ischemia. Continue ASA. Qualifiers: Chest pain type: unspecified Qualified Code(s): R07.9 - Chest pain, unspecified (2) Acute kidney injury superimposed on chronic kidney disease Current Visit: Yes Status: Acute Assessment and plan: Acute on chronic renal failure in the setting of CKD III. Evaulated by Nephrology who noted non-oliguric CLIFTON on CKD stage IIIb, likely prerenal CLIFTON. No urgent need for HD but if his hyperkalemia becomes medical refractory, then dialysis may be needed. Cont IV fluids (3) Hyperkalemia Current Visit: Yes Status: Acute Assessment and plan: K 6.5 on arrival. Treated with Kayexalate, IV calcium gluconate. Repeat K 4.7. Monitor daily BMP. Nephrology following. K 4.5 on 09/15 (4) Hypertension Current Visit: Yes Status: Chronic Assessment and plan: per hx. BP variable acceptable. Continue BP medication. Monitor BP and titrate PRN Qualifiers: Hypertension type: essential hypertension Qualified Code(s): I10 - Essential (primary) hypertension (5) T2DM (type 2 diabetes mellitus) Current Visit: No Status: Chronic Assessment and plan: per hx. internal unknown. Holding home oral hypoglycemics. SSI. Monitor blood sugar and titrate PRN. Hgb A1c pending Qualifiers: Diabetes mellitus complication status: without complication Diabetes mellitus [facility] insulin use: unspecified intermediate teacher insulin use status Qualified Code(s): E11.9 - Type 2 diabetes mellitus without complications (6) DVT prophylaxis Current Visit: Yes Status: Acute Assessment and plan: heparin - Subjective Interval history: Seen and examined at bedside; says he feels better. No chest pain. No SOB. Making adequate urine. He is agreeable to stay overnight for monitoring of renal function - Constitutional Vitals: Temp Pulse Resp BP Pulse Ox 97.2 F L 76 14 159/82 95 09/15/17 18:57 09/15/17 18:57 09/15/17 18:57 09/15/17 18:57 09/15/17 18:57 General appearance: Present: cooperative, A&O X 3, no acute distress, answers questions appropriately - Head Head exam: Present: atraumatic, normocephalic - Eye Eye exam: Present: PERRL, conjuntiva pink, sclera anicteric Pupils: Present: PERRL - Neck Neck exam general surgery: Present: supple, trachea midline. Absent: lymphadenopathy - Respiratory Respiratory exam: Present: CTAB. Absent: accessory muscle use, rales, rhonchi, wheezes - Cardiovascular Cardiovascular exam: Present: RRR, +S1, +S2. Absent: diastolic murmur, gallop, rubs, systolic murmur - GI/Abdominal GI/Abdominal exam: Present: normal bowel sounds, soft, no peritoneal signs. Absent: distended, tenderness - Extremities Exam Extremities exam: Present: warm, radial pulses palpable and symmetrical. Absent : calf tenderness, cyanotic, pedal edema - Neurological Exam Neurological exam: Present: CN II-XII intact, oriented X3, no focal deficits. Absent: pronater drift, facial droop, speech deficit - Skin Skin exam: Present: dry, intact Internal Medicine: Result - Labs CBC & Chem 7: 09/14/17 04:23 09/15/17 04:25 Labs: BMP 09/15/17 04:25 Sodium 140 Potassium 4.5 Chloride 110 H Carbon Dioxide 25 BUN 22 Creatinine 1.75 H Glucose 103 Calcium 9.1 Consult Discharge Plan - Plan Referrals: Erasto Varner MD [Primary Care Provider] - 09/25/17 8:00 am
[2017-09-16] MEDS: *HR* Heparin 5,000 UNIT/ML VIAL SQ SCH (05:45)
[2017-09-16] MEDS: Insulin LISPRO 300 UNITS/3 ML VIAL SQ SCH ×2 (07:37→13:04)
[2017-09-16] MEDS: Aspirin 81 MG TAB.CHEW PO SCH (08:42)
[2017-09-16] MEDS: amLODIPine 5 MG TABLET PO SCH (08:42)
[2017-09-16] MEDS: Insulin DETEMIR 100 UNIT/ML X5UNITS SQ SCH (08:43)
[2017-09-16 09:02] LABS: Hematocrit 32.6 % (37.5-50.1); Hemoglobin 10.6 g/dL (12.9-16.9); Mean Corpuscular HGB Conc 32.5 g/dL (31.6-35.5); Mean Corpuscular Hemoglobin 30.4 pg (28.0-33.3); Mean Corpuscular Volume 93.4 fL (83.0-100.0); Mean Platelet Volume 10.3 fL (9.4-12.4); Platelet Count 156 K/mcL (140-400); Red Blood Count 3.49 M/mcL (4.19-5.50); Red Cell Distribution Width 13.1 % (11.5-14.5)
[2017-09-16 09:30] LABS: Calcium 8.8 mg/dL (8.6-10.3); Potassium 4.5 mEq/L (3.5-5.1)
--- NOTE | 2017-09-16 11:10 | Nephrology Progress Note ---
Date of Encounter: 09/16/17 Time of Encounter: 11:15 - Assessment and Plan (1) Acute kidney injury superimposed on chronic kidney disease Current Visit: Yes Status: Acute SCr continues to improve at 1.59, GFR 43 which might be baseline dating back to july 2016 Continue to avoid nephrotoxins if possible UOp great at 2150cc in the past 24hrs lytes WNL Can discharge from a renal standpoint with followup with Dr kate within 4 weeks with BMP (2) CKD (chronic kidney disease) stage 3, GFR 30-59 ml/min Current Visit: Yes Status: Acute Baseline appears to be around 43 dating back to 07/2016 Subjective Principal diagnosis: CLIFTON on CKD Interval history: Pt seen and examined with no new complaints, eager to go home Objective - Vital Signs Vital signs: Vital Signs Temp Pulse Resp BP Pulse Ox 09/16/17 06:50 97.5 F L 74 16 161/81 98 09/16/17 03:30 97.8 F 67 16 153/77 98 09/15/17 23:12 97.7 F 63 16 143/70 95 09/15/17 18:57 97.2 F L 76 14 159/82 95 09/15/17 16:05 98.0 F 70 18 137/68 96 Intake and Output 09/15/17 09/16/17 09/16/17 23:59 07:59 15:59 Intake Total 1000 / 1000 240 / 240 Output Total 1250 / 1250 800 / 800 Balance -250 / -250 -800 / -800 240 / 240 Intake: IV Fluids 1000 / 1000 0.9 % Sodium Chloride 1,000 ML 1000 / 1000 @ 100 mls/hr IVC .Q10H [facility] Rx#: [id number] Oral 240 / 240 Output: Urine 1250 / 1250 800 / 800 Other: Meal Breakfast Percent of Meal Consumed 100% Weight 62.1 kg Blood Glucose* 119 118 Patient Weight 09/16/17 23:59 Weight 62.1 kg - General Appearance Exam: NAD EENT: Present: ATNC, mucous membranes moist Neck: Present: no JVD, supple Respiratory: Present: clear Cardiology: Present: no edema, normal S1, normal S2 Gastrointestinal: Present: no tenderness, no guarding Integumentary: Present: warm and dry Neurologic: Present: no focal deficit Musculoskeletal: Present: no deformities Psychiatric: Present: mood/affect appropriate, cooperative - Lab 09/16/17 08:39 09/16/17 08:39 Most recent lab results Calcium 8.8 mg/dL (8.6-10.3) 09/16/17 08:39 Urine Creatinine 161 mg/dL 09/13/17 21:00 Urine Sodium 48.5 mEq/L 09/13/17 21:00 Consult Discharge Plan - Plan Referrals: Erasto Varner MD [Primary Care Provider] - 09/25/17 8:00 am
[2017-09-16 12:36] VITALS: BP 146/73
--- NOTE | 2017-09-16 13:36 | Discharge Summary ---
Date of Encounter: 09/16/17 Time of Encounter: 13:33 - Discharge Diagnosis (1) Acute kidney injury superimposed on chronic kidney disease Priority: Primary Status: Chronic Comments: Acute on chronic renal failure in the setting of CKD III. Evaulated by Nephrology who noted non-oliguric CLIFTON on CKD stage IIIb, likely prerenal CLIFTON. No urgent need for HD. Renal function improved to baseline with IV fluids. Follow up with nephrology within 4 weeks. (2) Hyperkalemia Priority: Primary Status: Resolved Comments: K 6.5 on arrival. Potassium normalized Kayexalate, IV calcium gluconate. K 4.5 at discharge. Recommend repeat CMP with PCP within 1-2 weeks (3) Chest pain Priority: Primary Status: Resolved Comments: presented with chest pain described as tearing sensation. CP relieved in ED. No known CAD, no previous ischemic eval. TTE with preserved EF, no wall motion abnormality. Risk factors include hypertension, diabetes and family history. Stress test negative for acute infarct or ischemia. Continue ASA. Qualifiers: Chest pain type: unspecified Qualified Code(s): R07.9 - Chest pain, unspecified (4) Hypertension Priority: Secondary Status: Chronic Comments: per hx. BP variable but acceptable. Continue home BP medications. Recommend follow-up with PCP within 1-2 weeks Qualifiers: Hypertension type: essential hypertension Qualified Code(s): I10 - Essential (primary) hypertension (5) T2DM (type 2 diabetes mellitus) Priority: Secondary Status: Chronic Comments: per hx. Blood sugars controlled. Continue home diabetes medication regimen. 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 Qualified Code(s): E11.9 - Type 2 diabetes mellitus without complications - Discharge Medications Prescriptions: Aspirin 81 mg PO DAILY #30 tab.chew Home Medications: Citalopram Hydrobromide [Citalopram HBr] 10 mg PO DAILY 03/25/16 [History] Colesevelam HCl [Welchol] 1,250 mg PO DAILY 03/25/16 [History] Insulin DETEMIR [Levemir Flextouch] 37 unit SQ DAILY 03/25/16 [History] Metformin HCl [Glucophage] 1,000 mg PO BID 03/25/16 [History] Metoprolol [Lopressor] 50 mg PO BID 03/25/16 [History] Simvastatin [Zocor] 40 mg PO HS 03/25/16 [History] amLODIPine [Norvasc] 5 mg PO DAILY 03/25/16 [History] Iron 18 mg PO DAILY 09/13/17 [History] Aspirin 81 mg PO DAILY #30 tab.chew 09/16/17 [Rx] Allergies/Adverse Reactions: 3 Allergy/AdvReac Type Severity Reaction Status Date / Time Poison Gisselle Extract Allergy Rash Verified 03/25/16 10:09 Procedures/tests Complete & Pending: Procedures Performed prior 72 hours Category Date Time Status CT abd pelvis wo iv oral only [CT] Stat Cat Scan 09/13/17 21:45 Completed NM breezy perf SPECT multi [NM] Routine Exams 09/14/17 05:41 Taken ECG 12 lead ECG [ECG] Routine Y 09/13/17 18:48 Completed EV venous imaging LE LT Routine Y 09/13/17 19:19 Completed SP pharm nuclear stress Routine Y 09/15/17 07:30 Completed Date of admission: 09/13/17 14:12 Primary care physician: Erasto Varner Discharging clinician: Delores Blunt Anticipated date of discharge: 09/16/17 - Patient Status Disposition: Home, Self-Care Overall status at discharge: patient is back to baseline - Discharge Instructions Instructions: Chronic Kidney Disease (DC) Follow Up With: Marcel Crisostomo MD [Partnered Physician] - (Please call for follow-up appointment within the next 4 weeks. He should have a repeat basic metabolic panel drawn) Erasto Varner MD [Primary Care Provider] - 09/25/17 8:00 am Syl Echeverria MD [Partnered Physician] - (Please call to schedule appointment within 1-2 weeks to establish care with catalogue clerk.) - Diet and Activity Activity: increase activity as tolerated Diet: advance to your usual diet, diabetic diet, low fat, low cholesterol, other Interval History: Seen and examined at bedside, patient says he feels much better and like to go home today if possible. No chest pain or shortness of breath recurrence. Renal function normalized to baseline, voiding without difficulty. Hospital course: See assessment and plan for hospital course - Time Spent with Patient Total time spent providing and/or coordinating discharge services: - Constitutional Vitals: Temp Pulse Resp BP Pulse Ox 97.8 F 69 14 146/73 95 09/16/17 12:33 09/16/17 12:33 09/16/17 12:33 09/16/17 12:33 09/16/17 12:33 General appearance: Present: cooperative, A&O X 3, no acute distress, answers questions appropriately - Head Head exam: Present: atraumatic, normocephalic - Eye Eye exam: Present: PERRL, conjuntiva pink, sclera anicteric Pupils: Present: PERRL - Neck Neck exam general surgery: Present: supple, trachea midline. Absent: lymphadenopathy - Respiratory Respiratory exam: Present: CTAB. Absent: accessory muscle use, rales, rhonchi, wheezes - Cardiovascular Cardiovascular exam: Present: RRR, +S1, +S2. Absent: diastolic murmur, gallop, rubs, systolic murmur - GI/Abdominal GI/Abdominal exam: Present: normal bowel sounds, soft, no peritoneal signs. Absent: distended, tenderness - Extremities Exam Extremities exam: Present: warm, radial pulses palpable and symmetrical. Absent : calf tenderness, cyanotic, pedal edema - Neurological Exam Neurological exam: Present: CN II-XII intact, oriented X3, no focal deficits. Absent: pronater drift, facial droop, speech deficit - Skin Skin exam: Present: dry, intact
== END 2017-09-16 14:52 | disposition home or self-care (01) | DRG 684 ==
LOC: EMEROO 10:55 → 3BNU 10:55
PROVIDERS: ADMIT Nurse Practitioner; ATTEND Registered Nurse

== ENCOUNTER 2021-10-19 20:33 | Inpatient (IN) ==
[2021-10-20] MEDS ORDERED: Naloxone 0.4 MG/ML INJ IVP PRN (01:04)
[2021-10-20] MEDS ORDERED: Ondansetron 4 MG/2 ML VIAL IVP PRN (01:04)
[2021-10-20] MEDS ORDERED: Acetaminophen 325 MG TABLET PO PRN (01:04)
[2021-10-20] MEDS ORDERED: Perflutren Lipid Microsphere 1.3 ML in 0.9 % Sodium Chloride 8.7 ML IVP PRN (01:09)
[2021-10-20] MEDS ORDERED: *HR* Heparin 5,000 UNIT/ML VIAL IVP PRN ×2 (01:20)
[2021-10-20 02:58] LABS: Basophils % 0.4 %; Eosinophils # 0.2 K/mcL (0.0-0.6); Eosinophils % 1.9 %; Hematocrit 30.3 % (37.5-50.1); Hemoglobin 9.9 g/dL (12.9-16.9); Lymphocytes % 17.8 %; Mean Corpuscular HGB Conc 32.7 g/dL (31.6-35.5); Mean Corpuscular Hemoglobin 30.4 pg (28.0-33.3); Mean Corpuscular Volume 92.9 fL (83.0-100.0); Monocytes # 1.2 K/mcL (0.0-1.3); Monocytes % 10.3 %; Neutrophils # 7.8 K/mcL (1.6-8.9); Platelet Count 234 K/mcL (140-400); Red Blood Count 3.26 M/mcL (4.19-5.50); Red Cell Distribution Width 14.4 % (11.5-14.5); Segmented Neutrophils % 68.6 %; White Blood Count 11.3 K/mcL (4.3-11.1)
[2021-10-20] MEDS: 0.9 % Sodium Chloride 1,000 ML IVC SCH ×3 (03:04→16:49)
[2021-10-20 03:14] LABS: Calcium 9.6 mg/dL (8.6-10.3); Chol/HDL Ratio 4.2 (0-4.9); Magnesium 1.7 mg/dL (1.6-2.6); Potassium 4.7 mEq/L (3.5-5.1)
[2021-10-20] MEDS: Heparin 25,000UNIT/250ML 1/2NS 25,000 UNIT/250 ML IV.SOLN IVC SCH (03:16)
[2021-10-20] MEDS ORDERED: *HR* Dextrose 50 % in Water (Syg) 50 ML SYRINGE IVP PRN (03:22)
[2021-10-20] MEDS ORDERED: Dextrose Gel 15 GM/37.5 ML TUBE PO PRN ×2 (03:22)
[2021-10-20] MEDS ORDERED: D5% in Water 1,000 ML IVC PRN (03:22)
[2021-10-20] MEDS: Insulin LISPRO 300 UNITS/3 ML VIAL SUBQ SCH ×4 (08:41→20:25)
[2021-10-20] MEDS: Insulin DETEMIR 100 UNIT/ML X5UNITS SUBQ SCH (21:02)
[2021-10-20] MEDS: Melatonin 3 MG TABLET PO PRN (21:02)
[2021-10-21 02:32] LABS: Hematocrit 29.2 % (37.5-50.1); Hemoglobin 9.5 g/dL (12.9-16.9); Mean Corpuscular HGB Conc 32.5 g/dL (31.6-35.5); Mean Corpuscular Hemoglobin 30.8 pg (28.0-33.3); Mean Corpuscular Volume 94.8 fL (83.0-100.0); Mean Platelet Volume 10.7 fL (9.4-12.4); Platelet Count 215 K/mcL (140-400); Red Blood Count 3.08 M/mcL (4.19-5.50); Red Cell Distribution Width 14.8 % (11.5-14.5); Segmented Neutrophils % 61.2 %; White Blood Count 9.1 K/mcL (4.3-11.1)
[2021-10-21 02:33] LABS: Basophils % 0.2 %; Eosinophils # 0.4 K/mcL (0.0-0.6); Eosinophils % 4.2 %; Immature Granulocytes % 0.7 % (0-4); Lymphocytes # 1.9 K/mcL (0.6-4.6); Lymphocytes % 21.2 %; Monocytes # 1.1 K/mcL (0.0-1.3); Monocytes % 12.5 %; Neutrophils # 5.6 K/mcL (1.6-8.9)
[2021-10-21 02:55] LABS: Albumin 3.4 g/dL (3.5-5.7); Bilirubin,Direct 0.2 mg/dL (0.0-0.2); Bilirubin,Indirect 0.4 mg/dL (0.0-1.0); Bilirubin,Total 0.6 mg/dL (0.3-1.0); Calcium 9.1 mg/dL (8.6-10.3); Globulin 3.3 g/dL (2.4-3.5); Magnesium 1.7 mg/dL (1.6-2.6); Potassium 4.6 mEq/L (3.5-5.1); Total Protein 6.7 g/dL (6.4-8.9)
[2021-10-21 02:57] LABS: % Iron Saturation 19 % (20-55); Iron 48 mcg/dL (65-175); Transferrin 180 mg/dL (203-362)
[2021-10-21] MEDS: 0.9 % Sodium Chloride 1,000 ML IVC SCH (03:08)
[2021-10-21 03:13] LABS: Ferritin 266 ng/mL (20-250)
[2021-10-21 03:31] LABS: Folate > 22.3 ng/mL (3.0-16.0); Vitamin B12 301 pg/mL (250-1100)
[2021-10-21] MEDS: Aspirin 81 MG TAB.CHEW PO SCH (08:09)
[2021-10-21] MEDS: amLODIPine 5 MG TABLET PO SCH (08:10)
[2021-10-21] MEDS: Multivit/Ca/Min/Fe/FA 1 TAB TABLET PO SCH (08:12)
[2021-10-21] MEDS: Insulin LISPRO 300 UNITS/3 ML VIAL SUBQ SCH ×4 (08:12→21:30)
[2021-10-21] MEDS: Heparin 25,000UNIT/250ML 1/2NS 25,000 UNIT/250 ML IV.SOLN IVC SCH (08:15)
[2021-10-21] MEDS ORDERED: Carbamide Peroxide 150 DROP/15 ML BOTTLE RIGHT EAR SCH (09:00)
[2021-10-21] MEDS ORDERED: *HR* Heparin 5,000 UNIT/ML VIAL IVP PRN ×2 (10:55)
[2021-10-21 11:51] LABS: Estimated Average Glucose 169 mg/dl; Hemoglobin A1C 7.5 %
[2021-10-21] MEDS ORDERED: Cyanocobalamin (B-12) 1,000 MCG/ML VIAL SQ ONE (12:54)
[2021-10-21] MEDS: Carbamide Peroxide 150 DROP/15 ML BOTTLE BOTH EARS SCH ×2 (13:49→21:36)
[2021-10-21] MEDS: Insulin DETEMIR 100 UNIT/ML X5UNITS SUBQ SCH (21:31)
[2021-10-21] MEDS: Melatonin 3 MG TABLET PO PRN (21:31)
[2021-10-22 01:19] LABS: Basophils % 0.3 %; Eosinophils # 0.4 K/mcL (0.0-0.6); Eosinophils % 4.8 %; Hematocrit 29.5 % (37.5-50.1); Hemoglobin 9.3 g/dL (12.9-16.9); Immature Granulocytes % 1.1 % (0-4); Lymphocytes # 2.1 K/mcL (0.6-4.6); Lymphocytes % 28.4 %; Mean Corpuscular HGB Conc 31.5 g/dL (31.6-35.5); Mean Corpuscular Hemoglobin 29.9 pg (28.0-33.3); Mean Corpuscular Volume 94.9 fL (83.0-100.0); Mean Platelet Volume 10.8 fL (9.4-12.4); Monocytes # 0.9 K/mcL (0.0-1.3); Platelet Count 202 K/mcL (140-400); Red Blood Count 3.11 M/mcL (4.19-5.50); Red Cell Distribution Width 14.7 % (11.5-14.5); Segmented Neutrophils % 53.4 %; White Blood Count 7.5 K/mcL (4.3-11.1)
[2021-10-22 01:30] LABS: Calcium 8.8 mg/dL (8.6-10.3); Magnesium 1.8 mg/dL (1.6-2.6); Potassium 4.6 mEq/L (3.5-5.1)
[2021-10-22] MEDS: Aspirin 81 MG TAB.CHEW PO SCH (09:13)
[2021-10-22] MEDS: amLODIPine 5 MG TABLET PO SCH (09:13)
[2021-10-22] MEDS: Insulin LISPRO 300 UNITS/3 ML VIAL SUBQ SCH ×4 (09:13→21:02)
[2021-10-22] MEDS: Carbamide Peroxide 150 DROP/15 ML BOTTLE BOTH EARS SCH ×2 (09:14→21:39)
[2021-10-22] MEDS: Multivit/Ca/Min/Fe/FA 1 TAB TABLET PO SCH (09:14)
[2021-10-22] MEDS ORDERED: Nitroglycerin 0.4 MG TAB.SUBL SL PRN (09:41)
[2021-10-22] MEDS: Heparin 25,000UNIT/250ML 1/2NS 25,000 UNIT/250 ML IV.SOLN IVC SCH (11:09)
[2021-10-22] MEDS ORDERED: *HR* Midazolam HCl 2 MG/2 ML VIAL ONE (13:56)
[2021-10-22] MEDS ORDERED: *HR* FentaNYL (PF) 100 MCG/2 ML VIAL ONE (13:56)
[2021-10-22] MEDS ORDERED: 0.9 % Sodium Chloride 2,000 ML ONE (13:57)
[2021-10-22] MEDS ORDERED: Nitroglycerin 1,000 MCG/5 ML VIAL IV ONE (13:57)
[2021-10-22] MEDS ORDERED: Heparin 1,000 UNITS/500 mL 0 ML ONE (13:57)
[2021-10-22] MEDS ORDERED: ISOVUE-370 200 ML INFUS..BTL ONE (13:57)
[2021-10-22] MEDS ORDERED: *HR* Heparin 10,000 UNIT/10 ML VIAL ONE (13:57)
[2021-10-22] MEDS: Melatonin 3 MG TABLET PO PRN (21:31)
[2021-10-22] MEDS: Insulin DETEMIR 100 UNIT/ML X5UNITS SUBQ SCH (21:34)
[2021-10-23 03:29] LABS: Basophils % 0.5 %; Eosinophils # 0.3 K/mcL (0.0-0.6); Eosinophils % 5.1 %; Hematocrit 29.1 % (37.5-50.1); Hemoglobin 9.5 g/dL (12.9-16.9); Immature Granulocytes % 0.7 % (0-4); Lymphocytes # 1.8 K/mcL (0.6-4.6); Lymphocytes % 29.6 %; Mean Corpuscular HGB Conc 32.6 g/dL (31.6-35.5); Mean Corpuscular Hemoglobin 30.2 pg (28.0-33.3); Mean Corpuscular Volume 92.4 fL (83.0-100.0); Mean Platelet Volume 10.3 fL (9.4-12.4); Monocytes # 0.8 K/mcL (0.0-1.3); Platelet Count 203 K/mcL (140-400); Red Blood Count 3.15 M/mcL (4.19-5.50); Red Cell Distribution Width 14.6 % (11.5-14.5); Segmented Neutrophils % 50.1 %
[2021-10-23 03:48] LABS: Calcium 8.8 mg/dL (8.6-10.3); Magnesium 1.8 mg/dL (1.6-2.6); Potassium 4.3 mEq/L (3.5-5.1)
[2021-10-23] MEDS: Insulin LISPRO 300 UNITS/3 ML VIAL SUBQ SCH ×2 (07:30→13:03)
[2021-10-23] MEDS: Aspirin 81 MG TAB.CHEW PO SCH (08:46)
[2021-10-23] MEDS: amLODIPine 5 MG TABLET PO SCH (08:46)
[2021-10-23] MEDS: Multivit/Ca/Min/Fe/FA 1 TAB TABLET PO SCH (08:46)
[2021-10-23] MEDS: Carbamide Peroxide 150 DROP/15 ML BOTTLE BOTH EARS SCH (08:47)
[2021-10-23] MEDS ORDERED: ISOVUE-370 200 ML INFUS..BTL ONE (10:07)
[2021-10-23] MEDS ORDERED: Nitroglycerin 1,000 MCG/5 ML VIAL IV ONE (10:07)
[2021-10-23] MEDS ORDERED: Heparin 1,000 UNITS/500 mL 500 ML ONE (10:07)
[2021-10-23] MEDS ORDERED: *HR* Heparin 10,000 UNIT/10 ML VIAL ONE (10:07)
[2021-10-23] MEDS ORDERED: *HR* FentaNYL (PF) 100 MCG/2 ML VIAL ONE ×2 (10:15→10:39)
[2021-10-23] MEDS ORDERED: *HR* Midazolam HCl 2 MG/2 ML VIAL ONE (10:15)
[2021-10-23] MEDS ORDERED: Isosorbide MONOnitrate (24 HR) 30 MG TAB.ER.24H PO SCH (11:30)
[2021-10-23 11:56] VITALS: PULSE 50
[2021-10-23 12:09] VITALS: O2SAT 99
[2021-10-23 12:15] VITALS: BP 134/73; TEMP 97.6
[2021-10-23] MEDS ORDERED: *HR* Heparin 5,000 UNIT/ML VIAL SQ SCH (14:00)
== END 2021-10-23 14:41 | disposition home health service (06) | DRG 281 ==
LOC: 2ANU 10-20 00:20 → SUATTDRO 10-20 00:20 → 2ANU 10-20 09:04
PROVIDERS: ADMIT Family Medicine; ATTEND Family Medicine

== ENCOUNTER 2021-12-23 08:46 | Inpatient (IN) ==
[2021-12-23] MEDS ORDERED: 0.9 % Sodium Chloride 1,000 ML IVC ONE ×2 (09:20→10:29)
[2021-12-23] MEDS ORDERED: cefTRIAXone 1,000 MG in Water for inj. (sterile) 10 ML IVP ONE (10:06)
[2021-12-23] MEDS ORDERED: Azithromycin 500 MG in 0.9 % Sodium Chloride 250 ML IVPB ONE (10:06)
[2021-12-23 10:24] LABS: Hematocrit 30.4 % (37.5-50.1); Hemoglobin 10.2 g/dL (12.9-16.9); Mean Corpuscular HGB Conc 33.6 g/dL (31.6-35.5); Mean Corpuscular Hemoglobin 31.8 pg (28.0-33.3); Mean Corpuscular Volume 94.7 fL (83.0-100.0); Mean Platelet Volume 10.2 fL (9.4-12.4); Platelet Count 148 K/mcL (140-400); Red Blood Count 3.21 M/mcL (4.19-5.50); Red Cell Distribution Width 13.9 % (11.5-14.5); White Blood Count 12.2 K/mcL (4.3-11.1)
[2021-12-23] MEDS ORDERED: DilTIAZem 50 MG/50 ML IV.SOLN IVC SCH (10:45)
[2021-12-23 11:00] LABS: Influenza A PCR Negative (Negative); Influenza B PCR Negative (Negative); Resp. Syncytial Virus PCR Negative (Negative)
[2021-12-23 11:01] LABS: SARS-CoV-2 by PCR (In House) Negative (Negative)
[2021-12-23 11:06] LABS: Albumin 3.6 g/dL (3.5-5.7); Albumin/Globulin Ratio 1.1 (1.1-2.2); Bilirubin,Total 0.9 mg/dL (0.3-1.0); Calcium 8.8 mg/dL (8.6-10.3); Globulin 3.2 g/dL (2.4-3.5); Potassium 4.4 mEq/L (3.5-5.1); Total Protein 6.8 g/dL (6.4-8.9); Troponin I 0.05 ng/mL (< 0.04)
[2021-12-23 11:52] LABS: Lymphocytes # 2.2 K/mcL (0.6-4.6); Neutrophils # 8.5 K/mcL (1.6-8.9); Platelet Estimate Normal (Normal)
[2021-12-23] MEDS ORDERED: DilTIAZem 50 MG/50 ML IV.SOLN IVC ONE (12:01)
[2021-12-23] MEDS: DilTIAZem 50 MG/50 ML IV.SOLN IVC SCH ×2 (13:25→22:38)
[2021-12-23] MEDS ORDERED: Naloxone 0.4 MG/ML INJ IVP PRN (13:56)
[2021-12-23] MEDS ORDERED: *HR* OxyCODONE Immed Rel 5 MG TABLET PO PRN (13:56)
[2021-12-23] MEDS ORDERED: Ondansetron ODT 4 MG TAB.RAPDIS SL PRN (13:56)
[2021-12-23] MEDS ORDERED: D5% in Water 1,000 ML IVC PRN (13:58)
[2021-12-23] MEDS ORDERED: *HR* Dextrose 50 % in Water (Syg) 50 ML SYRINGE IVP PRN (13:58)
[2021-12-23] MEDS ORDERED: Dextrose 4 GM Chewable Tablets PO PRN ×2 (13:58)
[2021-12-23] MEDS ORDERED: Ipratropium/Albuterol Neb 3 ML ONE (14:04)
[2021-12-23] MEDS: Ipratropium/Albuterol Neb 3 ML IH SCH ×3 (14:08→20:22)
[2021-12-23] MEDS: *HR* HYDROcodone/Acet 5/325 mg TABLET PO PRN (14:19)
[2021-12-23] MEDS ORDERED: *HR* Heparin 5,000 UNIT/ML VIAL IVP PRN ×2 (16:54)
[2021-12-23] MEDS ORDERED: *HR* Heparin 5,000 UNIT/ML VIAL IVP ONE (16:54)
[2021-12-23] MEDS: Insulin LISPRO 300 UNITS/3 ML VIAL SUBQ SCH ×2 (17:10→22:37)
[2021-12-23 18:23] LABS: Hematocrit 30.2 % (37.5-50.1); Hemoglobin 9.6 g/dL (12.9-16.9); Mean Corpuscular HGB Conc 31.8 g/dL (31.6-35.5); Mean Corpuscular Hemoglobin 30.9 pg (28.0-33.3); Mean Corpuscular Volume 97.1 fL (83.0-100.0); Mean Platelet Volume 9.8 fL (9.4-12.4); Platelet Count 132 K/mcL (140-400); Red Blood Count 3.11 M/mcL (4.19-5.50); Red Cell Distribution Width 13.9 % (11.5-14.5); White Blood Count 10.9 K/mcL (4.3-11.1)
[2021-12-23 18:35] LABS: Heparin anti-factor XA UFH < 0.04 IU/mL (0.30-0.70); INR 1.3; Prothrombin Time 14.1 Seconds (9.4-12.1)
[2021-12-23 18:37] LABS: Activated Partial Thrombo Time 30.1 Seconds (26.0-36.0)
[2021-12-23] MEDS: Heparin 25,000UNIT/250ML 1/2NS 25,000 UNIT/250 ML IV.SOLN IVC SCH (20:58)
[2021-12-23] MEDS: Melatonin 3 MG TABLET PO PRN (21:02)
[2021-12-23] MEDS: Insulin DETEMIR 100 UNIT/ML X5UNITS SUBQ SCH (22:37)
[2021-12-23 23:07] LABS: Bilirubin,Urine Negative (Negative); Blood,Urine Negative (Negative); Clarity,Urine Clear (Clear); Color,Urine Yellow (Yellow); Glucose,Urine (UA) Normal (Normal); Hyaline Casts,Urine Few per lpf (None Seen); Ketones,Urine Negative (Negative); Leukocyte Esterase,Urine Negative (Negative); Mucus,Urine Few per lpf (None-Few); Nitrite,Urine Negative (Negative); PH,Urine 5.5 pH Units (5.0-8.0); Protein,Urine 100 mg/dL (Neg-Trace); Specific Gravity,Urine 1.016 (1.010-1.025); Squamous Epithelial Cell,Urine Few per hpf (None-Few); Urobilinogen,Urine Normal (Normal); WBC,Urine 0-3 per hpf (0-3)
[2021-12-24 03:32] LABS: Basophils % 0.1 %; Eosinophils # 0.1 K/mcL (0.0-0.6); Hematocrit 27.9 % (37.5-50.1); Immature Granulocytes % 0.2 % (0-4); Lymphocytes # 1.9 K/mcL (0.6-4.6); Lymphocytes % 21.4 %; Mean Corpuscular HGB Conc 32.3 g/dL (31.6-35.5); Mean Corpuscular Hemoglobin 30.6 pg (28.0-33.3); Mean Corpuscular Volume 94.9 fL (83.0-100.0); Mean Platelet Volume 10.5 fL (9.4-12.4); Monocytes # 0.8 K/mcL (0.0-1.3); Monocytes % 9.1 %; Neutrophils # 6.1 K/mcL (1.6-8.9); Platelet Count 139 K/mcL (140-400); Red Blood Count 2.94 M/mcL (4.19-5.50); Red Cell Distribution Width 13.9 % (11.5-14.5); Segmented Neutrophils % 68.2 %
[2021-12-24] MEDS: DilTIAZem 50 MG/50 ML IV.SOLN IVC SCH (03:43)
[2021-12-24] MEDS: *HR* HYDROcodone/Acet 5/325 mg TABLET PO PRN (03:52)
[2021-12-24 03:53] LABS: Magnesium 1.8 mg/dL (1.6-2.6); Potassium 3.9 mEq/L (3.5-5.1)
[2021-12-24] MEDS: Ipratropium/Albuterol Neb 3 ML IH SCH ×4 (04:14→19:57)
[2021-12-24] MEDS: Insulin LISPRO 300 UNITS/3 ML VIAL SUBQ SCH ×4 (08:23→21:31)
[2021-12-24] MEDS: Aspirin Enteric Coated 81 MG Tablet PO SCH (08:24)
[2021-12-24] MEDS: amLODIPine 5 MG TABLET PO SCH (08:24)
[2021-12-24] MEDS: Isosorbide MONOnitrate (24 HR) 30 MG TAB.ER.24H PO SCH (08:24)
[2021-12-24] MEDS: Azithromycin 250 MG TABLET PO SCH (08:24)
[2021-12-24] MEDS: cefTRIAXone 1,000 MG in 0.9 % Sodium Chloride 10 ML IVP SCH (08:27)
[2021-12-24] MEDS: Acetaminophen 325 MG TABLET PO PRN (08:47)
[2021-12-24] MEDS: Heparin 25,000UNIT/250ML 1/2NS 25,000 UNIT/250 ML IV.SOLN IVC SCH ×2 (17:03→23:13)
[2021-12-24] MEDS: Melatonin 3 MG TABLET PO PRN (20:13)
[2021-12-24] MEDS: Insulin DETEMIR 100 UNIT/ML X5UNITS SUBQ SCH (20:21)
[2021-12-25 02:53] LABS: Basophils % 0.1 %; Eosinophils # 0.2 K/mcL (0.0-0.6); Eosinophils % 2.9 %; Hematocrit 28.7 % (37.5-50.1); Hemoglobin 9.4 g/dL (12.9-16.9); Immature Granulocytes % 0.5 % (0-4); Lymphocytes # 1.5 K/mcL (0.6-4.6); Lymphocytes % 18.8 %; Mean Corpuscular HGB Conc 32.8 g/dL (31.6-35.5); Mean Corpuscular Hemoglobin 31.3 pg (28.0-33.3); Mean Corpuscular Volume 95.7 fL (83.0-100.0); Mean Platelet Volume 10.2 fL (9.4-12.4); Monocytes # 0.6 K/mcL (0.0-1.3); Neutrophils # 5.5 K/mcL (1.6-8.9); Platelet Count 166 K/mcL (140-400); Red Cell Distribution Width 13.9 % (11.5-14.5); Segmented Neutrophils % 69.7 %; White Blood Count 7.8 K/mcL (4.3-11.1)
[2021-12-25 03:13] LABS: Calcium 8.5 mg/dL (8.6-10.3); Magnesium 1.9 mg/dL (1.6-2.6); Potassium 4.3 mEq/L (3.5-5.1)
[2021-12-25] MEDS: Ipratropium/Albuterol Neb 3 ML IH SCH ×4 (03:23→19:56)
[2021-12-25] MEDS: Insulin LISPRO 300 UNITS/3 ML VIAL SUBQ SCH ×4 (08:31→20:28)
[2021-12-25] MEDS: amLODIPine 5 MG TABLET PO SCH (08:54)
[2021-12-25] MEDS: Aspirin Enteric Coated 81 MG Tablet PO SCH (08:56)
[2021-12-25] MEDS: Azithromycin 250 MG TABLET PO SCH (08:56)
[2021-12-25] MEDS: cefTRIAXone 1,000 MG in 0.9 % Sodium Chloride 10 ML IVP SCH (08:56)
[2021-12-25] MEDS: Isosorbide MONOnitrate (24 HR) 30 MG TAB.ER.24H PO SCH (08:56)
[2021-12-25] MEDS: Melatonin 3 MG TABLET PO PRN (20:31)
[2021-12-25] MEDS: Insulin DETEMIR 100 UNIT/ML X5UNITS SUBQ SCH (20:32)
[2021-12-26 03:38] LABS: Basophils % 0.3 %; Eosinophils # 0.3 K/mcL (0.0-0.6); Eosinophils % 4.7 %; Hematocrit 26.5 % (37.5-50.1); Hemoglobin 8.7 g/dL (12.9-16.9); Immature Granulocytes % 0.6 % (0-4); Lymphocytes # 1.3 K/mcL (0.6-4.6); Lymphocytes % 18.7 %; Mean Corpuscular HGB Conc 32.8 g/dL (31.6-35.5); Mean Corpuscular Hemoglobin 30.9 pg (28.0-33.3); Mean Platelet Volume 10.3 fL (9.4-12.4); Monocytes # 0.8 K/mcL (0.0-1.3); Monocytes % 11.2 %; Neutrophils # 4.4 K/mcL (1.6-8.9); Platelet Count 199 K/mcL (140-400); Red Blood Count 2.82 M/mcL (4.19-5.50); Red Cell Distribution Width 13.7 % (11.5-14.5); Segmented Neutrophils % 64.5 %; White Blood Count 6.9 K/mcL (4.3-11.1)
[2021-12-26] MEDS: Ipratropium/Albuterol Neb 3 ML IH SCH ×4 (03:50→20:03)
[2021-12-26 03:51] LABS: Calcium 8.6 mg/dL (8.6-10.3); Potassium 4.2 mEq/L (3.5-5.1)
[2021-12-26] MEDS: Insulin LISPRO 300 UNITS/3 ML VIAL SUBQ SCH ×4 (08:10→22:00)
[2021-12-26] MEDS: amLODIPine 5 MG TABLET PO SCH (08:11)
[2021-12-26] MEDS: Azithromycin 250 MG TABLET PO SCH (08:11)
[2021-12-26] MEDS: Isosorbide MONOnitrate (24 HR) 30 MG TAB.ER.24H PO SCH (08:11)
[2021-12-26] MEDS: cefTRIAXone 1,000 MG in 0.9 % Sodium Chloride 10 ML IVP SCH (08:11)
[2021-12-26] MEDS: Aspirin Enteric Coated 81 MG Tablet PO SCH (08:11)
[2021-12-26] MEDS: Acetaminophen 325 MG TABLET PO PRN (08:18)
[2021-12-26] MEDS ORDERED: *HR* Heparin 5,000 UNIT/ML VIAL SQ SCH (14:00)
[2021-12-26] MEDS: Insulin DETEMIR 100 UNIT/ML X5UNITS SUBQ SCH (22:06)
[2021-12-27 02:46] LABS: Basophils % 0.5 %; Eosinophils # 0.4 K/mcL (0.0-0.6); Eosinophils % 6.1 %; Hematocrit 27.6 % (37.5-50.1); Immature Granulocytes % 1.1 % (0-4); Lymphocytes # 1.4 K/mcL (0.6-4.6); Lymphocytes % 20.8 %; Mean Corpuscular HGB Conc 32.6 g/dL (31.6-35.5); Mean Corpuscular Hemoglobin 30.5 pg (28.0-33.3); Mean Corpuscular Volume 93.6 fL (83.0-100.0); Monocytes # 0.8 K/mcL (0.0-1.3); Monocytes % 11.8 %; Neutrophils # 3.9 K/mcL (1.6-8.9); Platelet Count 215 K/mcL (140-400); Red Blood Count 2.95 M/mcL (4.19-5.50); Red Cell Distribution Width 13.7 % (11.5-14.5); Segmented Neutrophils % 59.7 %; White Blood Count 6.5 K/mcL (4.3-11.1)
[2021-12-27 02:57] LABS: Calcium 8.9 mg/dL (8.6-10.3); Potassium 4.2 mEq/L (3.5-5.1)
[2021-12-27] MEDS: Ipratropium/Albuterol Neb 3 ML IH SCH ×2 (03:59→10:39)
[2021-12-27] MEDS: Insulin LISPRO 300 UNITS/3 ML VIAL SUBQ SCH ×2 (10:15→12:02)
[2021-12-27] MEDS: Isosorbide MONOnitrate (24 HR) 30 MG TAB.ER.24H PO SCH (10:16)
[2021-12-27] MEDS: amLODIPine 5 MG TABLET PO SCH (10:16)
[2021-12-27] MEDS: Azithromycin 250 MG TABLET PO SCH (10:16)
[2021-12-27] MEDS: Aspirin Enteric Coated 81 MG Tablet PO SCH (10:16)
[2021-12-27] MEDS: cefTRIAXone 1,000 MG in 0.9 % Sodium Chloride 10 ML IVP SCH (10:17)
[2021-12-27 11:59] VITALS: BP 123/71; PULSE 79; TEMP 97.4; O2SAT 97
[2021-12-27 13:31] LABS: Influenza A PCR Negative (Negative); Influenza B PCR Negative (Negative); Resp. Syncytial Virus PCR Negative (Negative)
[2021-12-27 14:14] LABS: SARS-CoV-2 by PCR (In House) Negative (Negative)
== END 2021-12-27 16:23 | DRG 871 ==
LOC: EMEROOARM 08:46 → 2NENU 08:46 → SUATTDRO 13:18
PROVIDERS: ADMIT Internal Medicine; ATTEND Family Medicine